=== PATIENT | female | born 2000 | race Hispanic/Latino ===

== ENCOUNTER 2024-03-06 20:29 | Emergency (ER) | payer SELFPAY | END 2024-03-06 22:45 | disposition home or self-care (01) | LOC: CSHERS 20:29 | DX: O20.8 Other hemorrhage in early pregnancy (principal); Z3A.08 8 weeks gestation of pregnancy | CPT/HCPCS: 76856 ==

== ENCOUNTER 2024-07-19 13:24 | Outpatient (CLI) | payer OTHER | END 2024-07-19 13:25 | disposition home or self-care (01) | LOC: CSHULT 13:24 | DX: Z33.1 Pregnant state, incidental (principal) | CPT/HCPCS: 76805 ==

== ENCOUNTER 2024-10-02 05:36 | Inpatient (IN) | payer MEDICAID, OTHER ==
[2024-10-01 12:47] LABS: Hemoglobin 12.1 g/dL (12.0-15.5); Platelet Count 260 10x3/uL (150-450)
[2024-10-01 13:22] LABS: Syphilis Antibody Nonreactive (Nonreactive); Syphilis Antibody Index 0.08 S/CO (<1.00 Non-Reactive)
[2024-10-01 13:24] LABS: HBsAg Index 0.27 S/CO (0-0.99); HIV (1/2) Antibody/Antigen Non-Reactive (NonReactive); HIV 1/2 INDEX 0.29 S/CO (<1.00); Hep B Surf Ag Non-Reactive S/CO (NonReactive)
[2024-10-02 06:39] VITALS: BMI 32.3
[2024-10-02] MEDS ORDERED: Promethazine HCl 25 MG/ML VIAL IM PRN (07:00)
[2024-10-02] MEDS ORDERED: Oxytocin 30 units/NS 500 ML 500 ML IV SCH (07:00)
[2024-10-02] MEDS ORDERED: Bicitra 30 ML UDCUP PO PRN (07:00)
[2024-10-02] MEDS ORDERED: Misoprostol 200 MCG TAB PR PRN (07:00)
[2024-10-02] MEDS ORDERED: Carboprost 250 MCG/ML AMP IM PRN (07:00)
[2024-10-02] MEDS ORDERED: Diphenoxylate HCl/Atropine Tablet PO PRN (07:00)
[2024-10-02] MEDS ORDERED: Ondansetron PF 4 MG/2 ML Vial IVP PRN ×3 (07:00→08:53)
[2024-10-02] MEDS ORDERED: Tranexamic Acid 1,000 MG/10 ML VIAL IVP PRN (07:00)
[2024-10-02] MEDS ORDERED: Lactated Ringer's 1,000 ML IV SCH (07:00)
[2024-10-02] MEDS ORDERED: hydrALAZINE 20 MG/ML VIAL SLOW IVP PRN ×2 (07:00→09:56)
[2024-10-02] MEDS ORDERED: Methylergonovine 0.2 MG/ML VIAL IM PRN (07:00)
[2024-10-02] MEDS: CEFAZOLIN 2 GM in Sodium Chloride 0.9% 100 ML IVPB SCH (07:32)
[2024-10-02] MEDS: Famotidine/PF 20 mg/2ml Vial SLOW IVP PRN (07:32)
[2024-10-02] MEDS ORDERED: diphenhydrAMINE 50 MG/ML VIAL IVP PRN (08:53)
[2024-10-02] MEDS ORDERED: Meperidine HCl/PF 25 MG (1 mL) VIAL SLOW IVP PRN (08:53)
[2024-10-02] MEDS ORDERED: fentaNYL 50 mcg/mL 1 mL Vial SLOW IVP PRN (08:53)
[2024-10-02] MEDS ORDERED: Moisturizing Cream (Eucerin) 113 GM JAR TOP PRN (08:53)
[2024-10-02] MEDS ORDERED: Naloxone HCl 0.4 mg/ml Vial IV PRN (08:53)
[2024-10-02] MEDS ORDERED: Naloxone HCl 0.4 mg/ml Vial IVP PRN ×2 (08:53)
[2024-10-02] MEDS ORDERED: Ketorolac Tromethamine 30 MG (1 mL) VIAL IVP PRN (08:53)
[2024-10-02] MEDS ORDERED: Ketorolac Tromethamine 30 MG (1 mL) VIAL IVP SCH ×2 (09:00→15:00)
[2024-10-02] MEDS ORDERED: Communication Order-Pharmacy FS SCH (09:00)
[2024-10-02] MEDS ORDERED: Bisacodyl 10 MG SUPP PR PRN (09:56)
[2024-10-02] MEDS ORDERED: diphenhydrAMINE 25 MG CAP PO PRN (09:56)
[2024-10-02] MEDS ORDERED: Lanolin Ointment 7 GM TUBE TOP PRN (09:56)
[2024-10-02] MEDS: Promethazine HCl 25 MG/ML VIAL IM PRN ×2 (10:07→17:48)
[2024-10-02] MEDS: Oxytocin 10 UNITS/ML VIAL ONE ×2 (10:16→10:17)
[2024-10-02] MEDS: Morphine PF 10 MG/10 ML VIAL ONE (10:17)
[2024-10-02] MEDS: Ondansetron PF 4 MG/2 ML Vial ONE (10:17)
[2024-10-02] MEDS: PHENYLEPHRINE-NS 100 MCG/ML 10 ML SYRINGE ONE (10:17)
[2024-10-02] MEDS: Dexmedetomidine 200 MCG/2 ML VIAL ONE (10:17)
[2024-10-02] MEDS: Phytonadione Neonatal 1 MG/0.5 ML AMP ONE (10:18)
[2024-10-02] MEDS: Ketorolac Tromethamine 30 MG (1 mL) VIAL ONE (10:18)
[2024-10-02] MEDS: Glycopyrrolate 0.2 MG/ML 5 ML SYRINGE ONE (10:18)
[2024-10-02] MEDS: Dexamethasone 10 MG/ML VIAL ONE (10:18)
[2024-10-02] MEDS: ePHEDrine Sulfate 50 MG/10 ML VIAL ONE (10:18)
[2024-10-02] MEDS: Erythromycin Base 0.5% Oint 1 GM TUBE ONE (10:18)
[2024-10-02] MEDS: Ferrous Sulfate 325 MG TAB PO SCH ×2 (12:22→20:58)
[2024-10-02] MEDS: Docusate 100 MG CAP PO SCH ×2 (12:22→20:58)
[2024-10-02] MEDS: Prenatal Vitamin 1 TAB PO SCH (12:22)
[2024-10-02] MEDS: Boostrix 0.5 ML (Tdap) VIAL (>/=7 yrs of age) IM ONE (12:23)
[2024-10-02] MEDS: Ketorolac Tromethamine 30 MG (1 mL) VIAL IVP SCH (14:31)
[2024-10-02] MEDS: Ondansetron PF 4 MG/2 ML Vial IVP PRN (14:31)
[2024-10-03 05:25] LABS: Hematocrit 30.1 % (34.9-44.5); Hemoglobin 9.7 g/dL (12.0-15.5); Mean Corpuscular HGB CONC 32.2 g/dL (32.0-36.0); Mean Corpuscular Hemoglobin 28.9 pg (27.0-33.0); Mean Corpuscular Volume 89.6 fL (81.6-98.3); Mean Platelet Volume 10.7 fL (7.4-10.4); Platelet Count 226 10x3/uL (150-450); Red Blood Cell (RBC) Count 3.36 10x6/uL (3.90-5.03); White Blood Cell (WBC) Count 12.8 10x3/uL (3.5-10.5)
[2024-10-03] MEDS: Prenatal Vitamin 1 TAB PO SCH (07:55)
[2024-10-03] MEDS ORDERED: Ibuprofen 800 MG TAB PO SCH (14:00)
[2024-10-03] MEDS: Ibuprofen 800 MG TAB PO SCH (16:34)
[2024-10-03] MEDS: HYDROcodone/Acetaminophen 5/325 mg Tablet PO PRN (16:45)
[2024-10-03] MEDS: Simethicone Chewable 80 MG TAB PO PRN (16:45)
[2024-10-04] MEDS: HYDROcodone/Acetaminophen 5/325 mg Tablet PO PRN (09:08)
[2024-10-05 08:04] VITALS: BP 95/56; TEMP 98.5
== END 2024-10-05 15:00 | disposition home or self-care (01) | DRG 788 ==
LOC: CSHLD 05:36 → CSHPP 10:58
PROVIDERS: ADMIT Family Medicine; ATTEND Family Medicine
PROC: 10D00Z1 Extraction of Products of Conception, Low, Open Approach (ICD-10-PCS; principal; 2024-10-02)
DX: O34.211 Maternal care for low transverse scar from previous cesarean delivery (principal); Z37.0 Single live birth; Z3A.39 39 weeks gestation of pregnancy; O69.81X0 Labor and delivery complicated by cord around neck, without compression, not applicable or unspecified
CPT/HCPCS: 36415; 51702; 85014; 85018; 85027; 85049; 86780; 86850; 86900; 86901; 87340; 87389; J1100; J1885; J2274; J2405; J2550; J2590; J3490